=== PATIENT | male | born 1970 | race Caucasian/White ===

== ENCOUNTER 2022-03-11 06:47 | Day surgery (SDC) | payer BC, SELFPAY ==
[2022-03-09 11:07] VITALS: BMI 24.4
--- NOTE | 2022-03-11 06:59 | P.HP_ITS ---
Providers/Chief Complaint Chief Complaint: unilateral inguinal hernia, w/o obstruction History of Present Illness Igor Resendiz is a 51 year old male who presents for laparoscopic left inguinal hernia repair with mesh, possible bilateral Review of Systems General: Reports: 10 or more systems reviewed and unremarkable except in HPI and below Medications/Allergies Home Medications Medication Instructions Recorded Confirmed Last Taken Type levothyroxine 112 mcg tablet 150 mcg PO ONCE 02/03/22 03/09/22 Unknown History Allergies Allergy/AdvReac Type Severity Reaction Status Date / Time No Known Allergies Allergy Verified 03/09/22 11:05 PFSH Acute PFSH: Medical History Abdominal pain Thyroid disease Surgical History Hx of knee surgery Right knee Social History Smoking and tobacco status: never smoked Vitals/I&O/Wt Weight last 48 hrs Weight 180 lb Physical Exam Narrative: General : Patient is well developed , no acute distress, oriented x3 Head : Normal cephalic, a-traumatic. Ears : Pinnae and external canal are normal. Hearing is normal. Eyes : PERRLA, Sclera and injection are normal. No conjunctival discharge. Nose : Mucous membranes are without erythema. Throat : buccal mucosa is normal, gums are without significant recession or hypertrophy. Lungs : Equal chest rise bilaterally, no use of accessory muscles, trachea is midline. Cor : Rate and rhythm are normal. Abdomen : Soft, ND, NT, no g/r/m Extremities : No edema, no cyanosis or clubbing, dorsalis pedis pulses are present bilaterally, non-tender to palpation of calves. Upper extremities are normal bilaterally. Back : non-tender to palpation, no CVA tenderness. 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
[2022-03-11 07:03] VITALS: BP 117/70; PULSE 63; RESP 18; TEMP 36.4; O2SAT 98
[2022-03-11] MEDS: sodium chloride 0.9% 1,000 ML 30 ML IV (07:15)
--- NOTE | 2022-03-11 07:23 | ANES.PREANE2 ---
Pre-Anesthetic Assessment Height/Weight: Height 1.83 m Weight 81.647 kg Temp Pulse Resp BP Pulse Ox O2 Del Method 97.7 F 68 18 121/84 100 03/11/22 10:03/11/22 10:03/11/22 10:01 03/11/22 10:03/11/22 10:03/11/22 10:01 Preop Diagnosis: left inguinal hernia Operation Date: 03/11/22 08:10 Proposed Procedures p laparascopic left inguinal hernia repair with mesh possible bilateral 60648,K40.90(Left) - Pablo Bethea DO Familial anesthetic complications: None Was Beta Keenan taken within 24 hours: N/A Was Clonidine taken within 24 hours: N/A Last intake: Intake Last Liquid Date 03/10/22 Last Liquid Time 22:00 Last Solid Date 03/10/22 Last Solid Time 22:00 Social No alcohol and No tobacco Exam alert, oriented x 3, clear to auscultation bilaterally and regular rate & rhythm Airway Submandibular: within normal limits Cervical ROM: within normal limits Mallampati: Class I Dentition: full History/ROS No significant complaints Pulmonary None reported CV/HEM None reported None reported Hepatic None reported GI Inguinal hernia Metabolic Thyroid Disease [facility] [place] [place] [facility] None reported Neuropsych None reported Anesthetic Plan ASA status: 2 Anesthesia: Anesthesia Evaluation and General Other: We discussed risk and benefits of general anesthesia including PONV, sore throat (sometimes severe), corneal abrasion, positioning and peripheral nerve injuries, life threatening allergic reaction, post operative ICU admission requiring prolonged intubation, stroke, heart attack, , and rare incidences of recall. Patient consents to proceed with general anesthesia. Risk of > 500 ml blood loss (7ml/kg in children): No Medications/Allergies Home Medications Medication Instructions Recorded Confirmed Last Taken Type levothyroxine 112 mcg tablet 150 mcg PO ONCE 02/03/22 03/11/22 03/10/22 History hydrocodone 7.5 mg-acetaminophen 1 tab PO Q4H PRN pain #30 tabs 03/11/22 Unknown Rx 325 mg tablet Allergies Allergy/AdvReac Type Severity Reaction Status Date / Time No Known Allergies Allergy Verified 03/09/22 11:05 PFS Anesthesia Medical History Abdominal pain Thyroid disease Surgical History Hx of knee surgery Right knee Social History Smoking and tobacco status: never smoked Data Anesthesia Cardiac Studies: No Data to Display
[2022-03-11] MEDS: ceFAZolin 2,000 MG in sodium chloride 0.9% (plus) 50 ML 100 MG IV (07:54)
--- NOTE | 2022-03-11 09:23 | PM.OP ---
Operative Report Date of procedure: March 11, 2022 Pre-op diagnosis: Preop Diagnosis left inguinal hernia Post-op diagnosis: same Procedure done: Laparoscopic (TEPP) repair of left inguinal hernia with mesh Implants: Left large 3D max mesh Specimens removed/disposition: none Surgeon: Dr. Pablo Bethea DO Anesthesia: General Estimated blood loss (mL): 5 Complications: None apparent Brief History: This is a 51-year-old gentleman with a left inguinal hernia. Laparoscopic left inguinal hernia repair with mesh was indicated. The risks and benefits were explained and documented. Procedure: Patient was wheeled into the operative room and placed on the OR table in a supine position. Abdomen was inspected prepped and draped in usual sterile fashion. Time-out was performed and all present were in agreement. A 15 blade scalpel was used to make 1.2 centimeter incision infraumbilically. Combination of sharp and blunt dissection was performed down to the anterior rectus sheath which was opened sharply. The dissecting balloon was then inserted into the space of Retzius and blown up. We put the camera into the port and identified that we were in the correct space. I then placed 2 5 millimeter trocars suprapubically in the midline. I then used endokitners to bluntly dissect in the space of Retzius out laterally. an indirect left inguinal hernia was identified. Blunt dissection was performed to dissect down the hernia sac until the vas deferens dove medially. A large left inguinal mesh was then placed into the space of Retzius. The mesh was unrolled and tacked once medially at the pubic bone. The mesh laid out nicely over the spermatic cord. Photos were taken of the mesh laid out and the hernia sac laid underneath the mesh. I watched the hernia sac remained in place as insufflation was removed. Incisions were closed with 4 O Vicryl in a subcuticular interrupted fashion. Skin glue was applied. Patient tolerated the procedure well.
[2022-03-11 09:28] VITALS: BP 132/80; PULSE 79; RESP 16; TEMP 36.3; O2SAT 100
[2022-03-11 09:35] VITALS: BP 119/86; PULSE 65; RESP 16; O2SAT 98
[2022-03-11 09:40] VITALS: BP 117/75; PULSE 65; RESP 16; O2SAT 100
[2022-03-11 09:44] VITALS: BP 140/87; PULSE 59; RESP 18; TEMP 36.5; O2SAT 100
[2022-03-11] MEDS: HYDROcodone-acetaminophen 7.5-325 mg Tablet 1 TAB PO (09:58)
[2022-03-11 10:01] VITALS: BP 121/84; PULSE 68; RESP 18; TEMP 36.5; O2SAT 100
--- NOTE | 2022-03-11 14:28 | ANE.PACU2 ---
Inpatient post-anesthesia follow up: Airway intact: Yes Vital signs: Temperature 97.7 F Pulse Rate 68 Respiratory Rate 18 Blood Pressure 121/84 Pulse Oximetry 100 Oxygen Delivery Me thod Room Air Oxygen Flow Rate Fraction of Inspir ed Oxygen Hydration adequate: Yes Nausea and vomiting: No Pain level: 5 Mental status: Baseline
--- NOTE | 2022-03-11 14:33 | ANE.PACU2 ---
Inpatient post-anesthesia follow up: Airway intact: Yes Vital signs: Temperature 97.7 F Pulse Rate 68 Respiratory Rate 18 Blood Pressure 121/84 Pulse Oximetry 100 Oxygen Delivery Me thod Room Air Oxygen Flow Rate Fraction of Inspir ed Oxygen Hydration adequate: Yes Nausea and vomiting: No Pain level: 4 Mental status: Baseline
== END 2022-03-11 10:32 | disposition home or self-care (01) ==
PROVIDERS: Visit Provider Surgery
PROC: (CPT 49650; principal; 2022-03-11 08:00)
DX: K40.90 Unilateral inguinal hernia, without obstruction or gangrene, not specified as recurrent (principal)
CPT/HCPCS: 49650; 51702; C1781; J1100; J1170; J2250; J2405; J2704; J2710; J3010; J3490; J7030

== ENCOUNTER 2022-04-07 09:52 | Day surgery (SDC) | payer BC, SELFPAY ==
[2022-04-05 13:22] VITALS: BMI 24.8
[2022-04-07 10:06] VITALS: BP 111/67; PULSE 70; RESP 18; TEMP 36.3; O2SAT 99
[2022-04-07] MEDS: sodium chloride 0.9% 1,000 ML 30 ML IV (10:22)
--- NOTE | 2022-04-07 10:38 | P.ANESASSM_ITS ---
Pre-Anesthetic Assessment Height/Weight: Height 1.83 m Weight 83.007 kg Temp Pulse Resp BP Pulse Ox O2 Del Method 97.3 F L 70 18 111/67 99 04/07/22 10:06 04/07/22 10:06 04/07/22 10:06 04/07/22 10:06 04/07/22 10:06 04/07/22 10:06 Preop Diagnosis: Screening Colonoscopy Operation Date: 04/07/22 11:15 Proposed Procedures p Colonoscopy 47055,Z12.11(Not Applicable) - Pablo Bethea DO Familial anesthetic complications: none Last intake: Intake Last Liquid Date 04/06/22 Last Liquid Time 19:00 Last Solid Date 04/05/22 Last Solid Time 20:00 Social Alcohol (1-2 drinks per week) and No tobacco Airway Submandibular: within normal limits Cervical ROM: within normal limits Mallampati: Class II Dentition: full Pulmonary None reported CV/HEM None reported None reported Hepatic None reported GI Gastroesophageal Reflux Disease Metabolic Thyroid Disease [facility] [place]/[facility] None reported Neuropsych None reported Anesthetic Plan ASA status: 2 Anesthesia: MAC Medications/Allergies Home Medications Medication Instructions Recorded Confirmed Last Taken Type levothyroxine 112 mcg tablet 150 mcg PO ONCE 02/03/22 04/05/22 04/06/22 History hydrocodone 7.5 mg-acetaminophen 1 tab PO Q4H PRN pain #30 tabs 03/11/22 04/05/22 04/06/22 Rx 325 mg tablet Allergies Allergy/AdvReac Type Severity Reaction Status Date / Time No Known Allergies Allergy Verified 03/23/22 11:04 Current Medications Generic Name Dose Route Start Last Admin Trade Name Dennyq PRN Reason Stop Dose Admin Sodium Chloride 1,000 mls @ 30 mls/hr 04/07/22 10:00 04/07/22 10:22 Sodium Chloride 0.9% IV 04/08/22 09:59 30 mls/hr .Q24H HANK Administration PFSH Anesthesia Medical History Abdominal pain Thyroid disease Surgical History (Updated 03/23/22 @ 11:29 by Pablo Bethea DO) Hx of inguinal hernia repair Hx of knee surgery Right knee Social History Smoking and tobacco status: never smoked Data Anesthesia Cardiac Studies: No Data to Display
--- NOTE | 2022-04-07 12:07 | PM.HP ---
Providers/Chief Complaint Primary Care Provider: Bucky Thayer Chief Complaint: encounter for screening for malignant neoplasm History of Present Illness Igor Resendiz is a 52 year old male here for colonoscopy Medications/Allergies Home Medications Medication Instructions Recorded Confirmed Last Taken Type levothyroxine 112 mcg tablet 150 mcg PO ONCE 02/03/22 04/05/22 04/06/22 History hydrocodone 7.5 mg-acetaminophen 1 tab PO Q4H PRN pain #30 tabs 03/11/22 04/05/22 04/06/22 Rx 325 mg tablet Allergies Allergy/AdvReac Type Severity Reaction Status Date / Time No Known Allergies Allergy Verified 03/23/22 11:04 PFSH Acute PFSH: Medical History Abdominal pain Thyroid disease Surgical History (Updated 03/23/22 @ 11:29 by Pablo Bethea DO) Hx of inguinal hernia repair Hx of knee surgery Right knee Social History Smoking and tobacco status: never smoked Vitals/I&O/Wt Last Vital Signs Temp 97.3 F L 04/07/22 10:06 Pulse 70 04/07/22 10:06 Resp 18 04/07/22 10:06 BP 111/67 04/07/22 10:06 Pulse Ox 99 04/07/22 10:06 O2 Del Method 04/07/22 10:06 Weight last 48 hrs Weight 183 lb A&P Assessment and plan (1) Colon cancer screening: Plan Colonoscopy Attestations Medical Necessity Statement*: Home Coding Level of Care Code 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
[2022-04-07 12:30] VITALS: BP 98/68; PULSE 74; RESP 12; O2SAT 96
[2022-04-07 12:40] VITALS: BP 118/79; PULSE 67; RESP 18; O2SAT 100
--- NOTE | 2022-04-07 15:27 | ANE.PACU2 ---
Inpatient post-anesthesia follow up: Airway intact: Yes Vital signs: Temperature 97.3 F Pulse Rate 67 Respiratory Rate 18 Blood Pressure 118/79 Pulse Oximetry 100 Oxygen Delivery Me thod Nasal Cannula Oxygen Flow Rate 4 Fraction of Inspir ed Oxygen Hydration adequate: Yes Nausea and vomiting: No Pain level: 2 Mental status: Baseline
== END 2022-04-07 13:00 | disposition home or self-care (01) ==
PROVIDERS: PCP Family Medicine; Visit Provider Surgery
PROC: 0DJD8ZZ Inspection of Lower Intestinal Tract, Via Natural or Artificial Opening Endoscopic (ICD-10-PCS; CPT 45378; principal; 2022-04-07 11:15)
DX: Z12.11 Encounter for screening for malignant neoplasm of colon (principal); K57.30 Diverticulosis of large intestine without perforation or abscess without bleeding; K64.8 Other hemorrhoids; K21.9 Gastro-esophageal reflux disease without esophagitis
CPT/HCPCS: 45378; J2704; J7030